=== PATIENT | female | born 1975 | race Caucasian/White ===

== ENCOUNTER 2016-12-04 20:46 | Emergency (ER) | payer OTHER ==
[2016-12-05 01:21] VITALS: BP 128/86
== END 2016-12-05 01:21 | disposition home or self-care (01) ==
LOC: ED 20:46
DX: S90.121A Contusion of right lesser toe(s) without damage to nail, initial encounter (principal); M72.2 Plantar fascial fibromatosis; Z88.8 Allergy status to other drugs, medicaments and biological substances; X58.XXXA Exposure to other specified factors, initial encounter; Y93.89 Activity, other specified; Y99.8 Other external cause status; Y92.89 Other specified places as the place of occurrence of the external cause